=== PATIENT | male | born 1985 | race Caucasian/White ===

== ENCOUNTER 2019-06-07 10:31 | Emergency (ER) | payer MEDICAID ==
[~2019-06-07] VITALS: Ht 162.6 cm; Wt 51.3 kg
[2019-06-07 11:07] VITALS: BP 136/95
--- NOTE | 2019-06-07 11:17 | NUR ---
No open bed at this time, pt escorted out to lobby, ambulates with slow steady gait with walker.
--- NOTE | 2019-06-07 11:33 | NUR ---
TO ED 03 WITH WALKER AND CAREGIVER.
--- NOTE | 2019-06-07 11:56 | NUR ---
XRAY AT BEDSIDE
[2019-06-07 12:50] VITALS: BP 125/93
--- NOTE | 2019-06-07 12:50 | NUR ---
Patient discharged with v/s stable. Written and verbal after care instructions given and explained. Patient verbalized understanding. Ambulatory with steady gait. All questions addressed prior to discharge. Advised to follow up with PMD.
== END 2019-06-07 12:50 | disposition home or self-care (01) ==
LOC: MED 10:31
DX: R05 Cough (principal); R06.2 Wheezing; J45.909 Unspecified asthma, uncomplicated; F41.9 Anxiety disorder, unspecified
CPT/HCPCS: 71045; 99283; Q0092

== ENCOUNTER 2019-11-22 14:51 | Inpatient (IN) | payer OTHER, SELFPAY ==
[~2019-11-22] VITALS: Ht 165.1 cm; Wt 63.5 kg
--- NOTE | 2019-11-22 14:52 | NUR ---
BIBA TAKEN TO BED 9
[2019-11-22] MEDS ORDERED: NACL 0.9% 1,000 ML IV SCH (15:02)
[2019-11-22 15:05] VITALS: BP 132/84
[2019-11-22] MEDS ORDERED: FOLI1TAB89 PO (15:31)
[2019-11-22] MEDS ORDERED: NA P133E RC (15:31)
[2019-11-22] MEDS ORDERED: CARB15DR52 OT (15:31)
[2019-11-22] MEDS ORDERED: LEVO0.124 PO (15:31)
[2019-11-22] MEDS ORDERED: FENO145T PO (15:31)
[2019-11-22] MEDS ORDERED: QUET100T PO (15:31)
[2019-11-22] MEDS ORDERED: [UNRECOGNIZED DRUG - CODE] PO (15:31)
[2019-11-22] MEDS ORDERED: ACET-2619 PO (15:31)
[2019-11-22] MEDS ORDERED: QUET200T PO (15:31)
[2019-11-22] MEDS ORDERED: FERR325E14 PO (15:31)
[2019-11-22] MEDS ORDERED: ALBU0.0912 IH (15:31)
[2019-11-22] MEDS ORDERED: SIMV40TA1 PO (15:31)
[2019-11-22] MEDS ORDERED: BISA-246 RC (15:31)
[2019-11-22] MEDS ORDERED: MONT10TA35 PO (15:31)
[2019-11-22] MEDS ORDERED: CYAN100T65 PO (15:31)
--- NOTE | 2019-11-22 15:31 | NUR ---
34 Y/O M BIBA FROM [facility] C/C COVID POSITIVE PER FACILITY AND PER FACILITY UNABLE TO CARE OF COVID PATIENT, SENT TO ER FOR FURTHER EVALUATION. PT PRESENTS IN NO DISTRESS, EUPNIC, VSS. UNABLE TO OBTAIN REPORT FROM PATIENT HX MODERATE INTELLECTUAL DISABILITY AND DEAF. NKA. RX--SEE CHART.
[2019-11-22] MEDS ORDERED: IMO2 PO (15:32)
--- NOTE | 2019-11-22 15:33 | NUR ---
X-Ray at bedside.
--- NOTE | 2019-11-22 15:35 | NUR ---
HISTORY TUTOR CALLED FOR HYDRAULIC JACK ADJUSTER MACHINE.
[2019-11-22 15:37] LABS: BILIRUBIN,URINE NEGATIVE (NEGATIVE); BLOOD, URINE 1+ (NEGATIVE); LEUKOCYTE ESTERASE ,URINE NEGATIVE (NEGATIVE); NITRITE, URINE NEGATIVE (NEGATIVE); UGLUCOSE NEGATIVE (NEGATIVE)
[2019-11-22 15:37] LABS: BASOPHILS # (AUTO) 0.1 K/uL (0.00-0.22); EOSINOPHILS % (AUTO) 0.5 % (0.0-4.0); HEMATOCRIT 38.6 % (36-52); HEMOGLOBIN 12.7 g/dL (12.0-18.0); LYMPHOCYTES # (AUTO) 0.4 K/uL (2.0-11.5); LYMPHOCYTES % (AUTO) 8.4 % (20.5-51.1); MEAN CORPUSCULAR HEMOGLOBIN 27 pg (27-31); MEAN CORPUSCULAR HGB CONC 33 g/dL (33-37); MEAN CORPUSCULAR VOLUME 83.3 fL (80-94); MONOCYTES # (AUTO) 0.5 K/uL (0.8-1.0); MONOCYTES % (AUTO) 9.1 % (1.7-9.3); NEUTROPHILS # (AUTO) 4.3 K/uL (1.8-7.7); PLATELET COUNT (AUTO) 176 K/uL (140-450); RED BLOOD CELL COUNT(AUTO) 4.64 MIL/uL (4.20-6.10); RED CELL DISTRIBUTION WIDTH 13.9 % (11.6-13.7); WHITE BLOOD COUNT (AUTO) 5.3 K/uL (4.8-10.8)
--- NOTE | 2019-11-22 15:51 | NUR ---
ASL INTERPRETATION VIA [employer] UTILIZED, APPLICATION DEVELOPMENT DIRECTOR ID # [id number].
[2019-11-22 15:55] LABS: ALBUMIN 3.1 g/dL (3.4-5.0); ANION GAP 11.1 (8-16); CARBON DIOXIDE 29.3 mmol/L (21-32); CREATININE 0.8 mg/dL (0.6-1.3); POTASSIUM 3.4 mmol/L (3.5-5.1); TOTAL BILIRUBIN 0.3 mg/dL (0.0-1.0)
--- NOTE | 2019-11-22 15:56 | NUR ---
MENTATION ASSESSMENT THROUGH [employer] COMPLETED. PT A/OXO.
[2019-11-22 15:57] LABS: APPEARANCE,URINE CLEAR (CLEAR); COLOR,URINE STRAW (YELLOW)
[2019-11-22 15:58] LABS: RBC,URINE 0-5 /HPF (0-5); WBC,URINE NONE SEEN /HPF (0-5)
--- NOTE | 2019-11-22 16:30 | NUR ---
PT RESTING IN BED, SIDE RAIL X2
[2019-11-22] MEDS ORDERED: ZOLPIDEM 5 MG TAB PO PRN (17:05)
[2019-11-22] MEDS ORDERED: ACETAMINOPHEN 650 MG SUPP RC PRN (17:05)
[2019-11-22] MEDS ORDERED: HYDROcodone/APAP 5/325 MG 1 TAB TAB PO PRN ×2 (17:05)
[2019-11-22] MEDS ORDERED: LORazepam 2 MG/ML VIAL IVP PRN (17:05)
[2019-11-22] MEDS ORDERED: cloNIDine 0.1 MG TAB PO PRN (17:05)
[2019-11-22] MEDS ORDERED: diphenhydrAMINE 50 MG/ML VIAL IVP PRN (17:05)
[2019-11-22] MEDS ORDERED: SODIUM PHOSPHATE 118 ML ENEM RC PRN (17:05)
[2019-11-22] MEDS ORDERED: ALUMINUM HYD/MAG/SIMETHICONE 30 ML UDC PO PRN (17:05)
[2019-11-22] MEDS ORDERED: MAGNESIUM OXIDE 400 MG TAB PO PRN (17:05)
[2019-11-22] MEDS ORDERED: guaiFENesin DM 200/20 MG-10 ML 10 ML UDC PO PRN (17:05)
[2019-11-22] MEDS ORDERED: ACETAMINOPHEN 325 MG TAB PO PRN (17:05)
[2019-11-22] MEDS ORDERED: ONDANSETRON 4 MG/2 ML VIAL IVP PRN (17:05)
[2019-11-22] MEDS ORDERED: BISACODYL 10 MG SUPP RC PRN (17:05)
[2019-11-22] MEDS ORDERED: POTASSIUM CHLORIDE 10 MEQ TABER PO PRN (17:05)
[2019-11-22] MEDS ORDERED: MAG SULF 2000 MG/WATER PREMIX 50 ML IV PRN (17:05)
[2019-11-22] MEDS ORDERED: DOCUSATE SODIUM 250 MG GELCAP PO PRN (17:05)
[2019-11-22] MEDS ORDERED: ALBUTEROL HFA MDI 90 MCG/ACTUATION 8 GM INH PRN (17:05)
[2019-11-22] MEDS ORDERED: MORPHINE SULFATE 2 MG/ML SYR IVP PRN (17:05)
--- NOTE | 2019-11-22 17:30 | NUR ---
PT RESTING IN BED, SIDE RAIL X2
--- NOTE | 2019-11-22 18:00 | NUR ---
Patient will be admitted to care of [facility]. Admited to TELE. Will go to room 130. Belongings list completed. Report to MAYNOR NYE.
--- NOTE | 2019-11-22 18:00 | NUR ---
RECEIVED REPORT FORM ER NURSE FOR CONTINUITY OF CARE, PT IS STABLE, PT IS DEAL, MENTALLY DELAYED, PT HAS LEFT HAND 20G, PT ON CARDIAC DIET, ADMITTING VITAL SIGNS ARE TEMP:100.7, BP:137/96, HR 100, O2:100, RR20, INTRODUCE PT TO THE ROOM, GAVE PT CALL LIGHT, BED IN LOW POSITION, SAFETY MEASURES IN PLACE, WILL CONTINUE TO MONITOR.
--- NOTE | 2019-11-22 18:17 | NUR ---
ADMINISTERED TYLENOL FOR TEMPEARTURE OF 100, MEDICATION EDUCATION GIVEN, PT TOLERATED WELL, PT IS STABLE. CALL LIGHT WITHIN REACH.
--- NOTE | 2019-11-22 19:10 | NUR ---
RECEIVED PATIENT IN STABLE CONDITION FROM AM SHIFT NURSE FOR CONTINUITY OF CARE. RESPIRATIONS EVEN, UNLABORED. CONTINUES ON ROOM AIR, O2SAT 98%. AFEBRILE. NO C/O PAIN. NO S/S ACUTE DISTRESS. SKIN WARM, DRY. SKIN ASSESSMENT COMPLETED. SKIN IS INTACT. SALINE LOCK TO RIGHT HAND 20G PATENT/INTACT. SAFETY PRECAUTIONS IN PLACE. ISOLATION PRECAUTIONS OBSERVED BY ALL STAFF. ORIENTED PATIENT TO ROOM/STAFF/CALL LIGHT. MRSA SCREEN COMPLETED BY PREVIOUS SHIFT. CALL LIGHT WITHIN REACH. WILL CONTINUE TO MONITOR.
--- NOTE | 2019-11-22 19:10 | NUR ---
GAVE REPORT TO NIGHT NURSE FOR CONTINUITY OF CARE, PT IS STABLE.
[2019-11-22 20:00] VITALS: BP 153/110
[2019-11-22] MEDS: QUEtiapine FUMARATE 100 MG TAB PO SCH (20:46)
[2019-11-22] MEDS: FENOFIBRATE 48 MG TAB PO SCH (20:47)
[2019-11-22] MEDS: SIMVASTATIN 40 MG TAB PO SCH (20:47)
[2019-11-22] MEDS ORDERED: hydrALAZINE 20 MG/ML VIAL IVP PRN (20:55)
[2019-11-22] MEDS ORDERED: hydrALAZINE 20 MG/ML VIAL ONE (21:00)
[2019-11-22] MEDS ORDERED: NON-FORMULARY ITEM (Fenofibrate Nanocrystallized* (Tricor*) 145 MG) PO SCH (21:00)
--- NOTE | 2019-11-22 21:17 | NUR ---
ELEVATED BLOOD PRESSURE OF 153/110 MM/HG. PRN HYDRALAZINE GIVEN ORDERED.
--- NOTE | 2019-11-22 22:00 | NUR ---
BLOOD PRESSURE REASSESSED AND CURRENTLY 122/77. PATIENT IS COMFORTABLY AND TRYING TO GO TO SLEEP. NO C/O PAIN. NO S/S ACUTE DISTRESS. DUE MEDS GIVEN ORDERED. ISOLATION PRECAUTIONS OBSERVED BY ALL STAFF. SAFETY PRECAUTIONS IN PLACE. CALL LIGHT WITHIN REACH AT ALL TIMES.
--- NOTE | 2019-11-22 23:18 | NUR ---
INCONTINENT CARE RENDERED WITH COOK TORTILLA AT BEDSIDE.
[2019-11-23] VITALS: BP 93/55
--- NOTE | 2019-11-23 01:37 | NUR ---
MADE ROUNDS. PATIENT IS ASLEEP. NO S/S ACUTE DISTRESS. ISOLATION PRECAUTIONS OBSERVED BY ALL STAFF. SAFETY PRECAUTIONS IN PLACE. CALL LIGHT WITHIN REACH AT ALL TIMES.
--- NOTE | 2019-11-23 03:50 | NUR ---
PATIENT IS ASLEEP. NO S/S ACUTE DISTRESS. CALL LIGHT WITHIN REACH. ISOLATION PRECAUTIONS OBSERVED. SAFETY PRECAUTIONS IN PLACE.
[2019-11-23 04:00] VITALS: BP 127/97
--- NOTE | 2019-11-23 04:15 | NUR ---
PATIENT ACCIDENTLY REMOVED IV. CANNULA INTACT. MINIMAL BLEEDING. NEW IV SITE STARTED USING ASEPTIC TECHNIQUE ON RIGHT HAND 20G, PATENT/INTACT. NO DISCOMFORT NOTED BY PATIENT.
--- NOTE | 2019-11-23 05:21 | NUR ---
PATIENT AWAKE AND RESTING COMFORTABLY IN BED. NO C/O PAIN. NO S/S ACUTE DISTRESS. CALL LIGHT WITHIN REACH. SAFETY PRECAUTIONS IN PLACE. ISOLATION PRECAUTIONS OBSERVED BY ALL STAFF.
[2019-11-23 06:32] LABS: BASOPHILS % (AUTO) 0.5 % (0.0-2.0); HEMATOCRIT 41.6 % (36-52); HEMOGLOBIN 13.7 g/dL (12.0-18.0); LYMPHOCYTES # (AUTO) 0.6 K/uL (2.0-11.5); LYMPHOCYTES % (AUTO) 12.1 % (20.5-51.1); MEAN CORPUSCULAR HEMOGLOBIN 28 pg (27-31); MEAN CORPUSCULAR HGB CONC 33 g/dL (33-37); MEAN CORPUSCULAR VOLUME 84.3 fL (80-94); MONOCYTES # (AUTO) 0.3 K/uL (0.8-1.0); MONOCYTES % (AUTO) 6.2 % (1.7-9.3); NEUTROPHILS # (AUTO) 4.2 K/uL (1.8-7.7); NEUTROPHILS % (AUTO) 81.2 % (42.2-75.2); PLATELET COUNT (AUTO) 179 K/uL (140-450); RED BLOOD CELL COUNT(AUTO) 4.94 MIL/uL (4.20-6.10); RED CELL DISTRIBUTION WIDTH 14.5 % (11.6-13.7); WHITE BLOOD COUNT (AUTO) 5.2 K/uL (4.8-10.8)
[2019-11-23] MEDS ORDERED: LEVOTHYROXINE 0.025 MG TAB ONE (06:34)
[2019-11-23] MEDS ORDERED: LEVOTHYROXINE 0.1 MG TAB ONE (06:34)
[2019-11-23] MEDS: LEVOTHYROXINE 0.1 MG, LEVOTHYROXINE 0.025 MG PO SCH ×2 (06:43)
[2019-11-23 07:04] LABS: ALBUMIN 3.3 g/dL (3.4-5.0); CARBON DIOXIDE 29.2 mmol/L (21-32); CREATININE 0.9 mg/dL (0.6-1.3); POTASSIUM 4.2 mmol/L (3.5-5.1); TOTAL BILIRUBIN 0.4 mg/dL (0.0-1.0)
--- NOTE | 2019-11-23 07:05 | NUR ---
RECEIVED PATIENT IN STABLE CONDITION FROM PM SHIFT NURSE FOR CONTINUITY OF CARE. RESPIRATIONS EVEN, UNLABORED. CONTINUES ON ROOM AIR, O2SAT 98%. NO C/O PAIN. NO S/S ACUTE DISTRESS. SKIN WARM, DRY. SKIN ASSESSMENT COMPLETED. SKIN IS INTACT. SALINE LOCK TO RIGHT HAND 20G PATENT/INTACT. SAFETY PRECAUTIONS IN PLACE. DROPLET ISOLATION PRECAUTIONS OBSERVED BY ALL STAFF. ORIENTED PATIENT TO ROOM/STAFF/CALL LIGHT. CALL LIGHT WITHIN REACH. WILL CONTINUE TO MONITOR.
[2019-11-23] MEDS ORDERED: LEVOTHYROXINE 0.025 MG TAB PO SCH (07:30)
[2019-11-23 08:00] VITALS: BP 140/95
[2019-11-23] MEDS ORDERED: NON-FORMULARY ITEM (Levothyroxine Sodium* (Synthroid*) 0.125 MG) PO SCH (09:00)
[2019-11-23] MEDS ORDERED: CHOLECALCIFEROL 5000 UNIT PO SCH (09:00)
[2019-11-23] MEDS: MONTELUKAST SODIUM 10 MG TAB PO SCH (09:05)
[2019-11-23] MEDS: QUEtiapine FUMARATE 100 MG TAB PO SCH ×2 (09:05→20:35)
[2019-11-23] MEDS: FOLIC ACID 1 MG TAB PO SCH (09:05)
[2019-11-23] MEDS: CHOLECALCIFEROL 1,000 IU TAB PO SCH (09:05)
[2019-11-23] MEDS: FERROUS SULFATE 325 MG TABEC PO SCH (09:05)
--- NOTE | 2019-11-23 09:05 | NUR ---
Ordered medications given. Patient being assisted with breakfast. Patient has no complaints at this time. Will continue to monitor patient.
[2019-11-23] MEDS: ENOXAPARIN 40 MG/0.4 ML SYR SUBQ SCH (09:19)
--- NOTE | 2019-11-23 10:15 | NUR ---
Patient resting in bed with eyes closed, respirations even and unlabored. Will continue to monitor patient.
--- NOTE | 2019-11-23 11:22 | NUR ---
Patient's brother, Tre, called. Updated him on patient's VS and condition. Patient resting calmly at this time. Will continue to monitor patient.
[2019-11-23 12:00] VITALS: BP 140/87
--- NOTE | 2019-11-23 14:05 | NUR ---
Patient sitting up in bed being fed lunch. No complaints at this time. FLACC-0. Respirations even and unlabored on room air, O2 saturation 97%, will continue to monitor patient.
[2019-11-23 15:25] VITALS: BP 119/67
--- NOTE | 2019-11-23 15:30 | NUR ---
Patient resting in bed comfortably, no complaints at this time. Safety and droplet precautions in place, call light within reach, will continue to monitor patient.
--- NOTE | 2019-11-23 18:50 | NUR ---
Patient's brother, Yaakov, called. . Updated him on patient's status and condition.
--- NOTE | 2019-11-23 19:08 | NUR ---
RECEIVED PATIENT IN STABLE CONDITION FROM AM SHIFT NURSE FOR CONTINUITY OF CARE. TELE PATIENT. RESPIRATIONS EVEN, UNLABORED. SKIN WARM, DRY. SALINE LOCK TO RIGHT HAND 20G PATENT/INTACT. NO C/O PAIN. NO S/S ACUTE DISTRESS. CALL LIGHT WITHIN REACH. SAFETY PRECAUTIONS IN PLACE. ISOLATION PRECAUTIONS OBSERVED BY ALL STAFF.
[2019-11-23 20:00] VITALS: BP 140/85
--- NOTE | 2019-11-23 20:17 | NUR ---
POSITIVE COVID SWAB RECEIVED -- REPORT GIVEN TO INFECTION CONTROL AND RESULT CALLED TO PARRIS ALARCON WHO WILL FOLLOW UP WITH ADMITTING PHYSICIAN.
[2019-11-23] MEDS: FENOFIBRATE 48 MG TAB PO SCH (20:35)
[2019-11-23] MEDS: SIMVASTATIN 40 MG TAB PO SCH (20:36)
--- NOTE | 2019-11-23 21:00 | NUR ---
PATIENT AWAKE AND SITTING COMFORTABLY IN BED. DUE MEDS GIVEN. NO C/O PAIN. NO S/S ACUTE DISTRESS. CALL LIGHT WITHIN REACH AT ALL TIMES. ISOLATION PRECAUTIONS OBSERVED. SAFETY PRECAUTIONS IN PLACE.
--- NOTE | 2019-11-23 23:25 | NUR ---
MADE ROUNDS. PATIENT IS ASLEEP. NO S/S ACUTE DISTRESS. CALL LIGHT WITHIN REACH. SAFETY PRECAUTIONS IN PLACE. ISOLATION PRECAUTIONS OBSERVED BY ALL STAFF.
[2019-11-24] VITALS: BP 119/76
--- NOTE | 2019-11-24 01:42 | NUR ---
PATIENT IS ASLEEP AND IN STABLE CONDITION. NO S/S ACUTE DISTRESS. CALL LIGHT WITHIN REACH. SAFETY PRECAUTIONS IN PLACE. ISOLATION PRECAUTIONS OBSERVED BY ALL STAFF.
--- NOTE | 2019-11-24 03:03 | NUR ---
PATIENT CONTINUES IN STABLE CONDITION. ASLEEP. NO S/S ACUTE DISTRESS. CALL LIGHT WITHIN REACH AT ALL TIMES. SAFETY PRECAUTIONS IN PLACE. ISOLATION PRECAUTIONS OBSERVED BY ALL STAFF.
[2019-11-24 04:00] VITALS: BP 93/57
--- NOTE | 2019-11-24 05:00 | NUR ---
PATIENT AWAKE. CONTINUES IN STABLE CONDITION. NO S/S ACUTE DISTRESS. SAFETY PRECAUTIONS IN PLACE. ISOLATION PRECAUTIONS OBSERVED BY ALL STAFF. CALL LIGHT WITHIN REACH AT ALL TIMES.
[2019-11-24] MEDS ORDERED: LEVOTHYROXINE 0.025 MG TAB ONE (06:30)
[2019-11-24] MEDS ORDERED: LEVOTHYROXINE 0.1 MG TAB ONE (06:30)
[2019-11-24] MEDS: LEVOTHYROXINE 0.1 MG, LEVOTHYROXINE 0.025 MG PO SCH ×2 (06:32)
--- NOTE | 2019-11-24 07:49 | NUR ---
RECEIVED REPORT FROM OPTICAL COATING TECHNICIAN NURSE FOR CONTINUITY OF CARE. AOX1 RESPONDS TO HIS NAME. FLACC 0, NO SOB, RESPIRATIONS EVEN AND UNLABORED. BLIND AND DEAF ON ROOM AIR, SATURATING WELL. SALINE LOCK TO RH 20G. CALL LIGHT WITHIN REACH. ISOLATION PRECAUTION OBSERVED. WILL CONT TO MONITOR
[2019-11-24 08:00] VITALS: BP 101/64
--- NOTE | 2019-11-24 08:40 | NUR ---
PATIENT HAS BEEN SCREENED AND CATEGORIZED MODERATE NUTRITION RISK. PATIENT WILL BE SEEN WITHIN 3-5 DAYS OF ADMISSION. 11/25/19 11/27/[address]
[2019-11-24] MEDS: CHOLECALCIFEROL 1,000 IU TAB PO SCH (09:00)
[2019-11-24] MEDS: QUEtiapine FUMARATE 100 MG TAB PO SCH ×2 (09:00→20:48)
[2019-11-24] MEDS: FOLIC ACID 1 MG TAB PO SCH (09:00)
[2019-11-24] MEDS: ENOXAPARIN 40 MG/0.4 ML SYR SUBQ SCH (09:00)
[2019-11-24] MEDS: MONTELUKAST SODIUM 10 MG TAB PO SCH (09:00)
[2019-11-24] MEDS: FERROUS SULFATE 325 MG TABEC PO SCH (09:00)
--- NOTE | 2019-11-24 09:30 | NUR ---
DUE MORNING MEDS GIVEN ORDERED. TOLERATED WELL.
--- NOTE | 2019-11-24 11:45 | NUR ---
PPT IS AWAKE, ALERT AND WATCHING TV. NO APPARENT DISTRESS, NO SOB, FLACC 0
[2019-11-24 12:00] VITALS: BP 112/72
--- NOTE | 2019-11-24 14:40 | NUR ---
PT WATCHING TV. FLACC 0, RESPIRATIONS ARE EVEN AND UNLABORED
[2019-11-24 16:00] VITALS: BP 109/73
--- NOTE | 2019-11-24 17:00 | NUR ---
PT PULLED OUT IV ON RIGHT HAND. LUMEN INTACT. IV INSERTED IN LEFT FOREARM.
--- NOTE | 2019-11-24 19:05 | NUR ---
PT AWAKE IN BED. FLACC 0 RESPIRATIONS ARE EVEN AND UNLABORED. ON ROOM AIR. NO APPARENT DISTRESS. WILL ENDORSE TO NEXT SHIFT
--- NOTE | 2019-11-24 19:48 | NUR ---
RECEIVED BEDSIDE SHIFT REPORT FROM DAYSHIFT NURSE FOR CONTINUITY OF CARE. PATIENT AWAKE AND ALERT IN BED NO SIGNS OF DISTRESS NOTED. SPO2 99% ON RA. IV ASSESSED AND PATENT. (SALINE LOCKED), TELE MONITOR ATTACHED AND SAFETY MEASURES IN PLACE. WILL CONTINUE TO MONITOR
[2019-11-24 20:00] VITALS: BP 118/81
[2019-11-24] MEDS: FENOFIBRATE 48 MG TAB PO SCH (20:47)
[2019-11-24] MEDS: SIMVASTATIN 40 MG TAB PO SCH (20:48)
--- NOTE | 2019-11-24 20:48 | NUR ---
ADMINISTERED 2100 MEDICATIONS TO PATIENT. PATIENT TOLERATED WELL NO SIGNS OF DISTRESS NOTED. WILL CONTINUE TO MONITOR.
--- NOTE | 2019-11-24 20:55 | NUR ---
PT SEEN AND ASSESSED. FOUND PT ON ROOM AIR WITH SPO2 OF 97%. PT IS IN NO APPARENT RESPIRATORY DISTRESS AT THIS TIME AND NO C/O SOB. PRN TX NOT INDICATED AT THIS MOMENT. WILL CONTINUE TO MONITOR PT.
--- NOTE | 2019-11-24 23:50 | NUR ---
PATIENT IN ROOM. SPO2 DECREASED TO 80% PATIENT BED IMMEDIATELY ELEVATED AND PLACED ON 2L O2 VIA NC. PATIENTS SPO2 IMMEDIATELY INCREASED TO 97%. RT CALLED FOR REASSESSEMENT. PATIENT IS RESTING COMFORTABLY IN BED NO SIGNS OF DISTRESS NOTED. WILL CONTINUE TO MONITOR
[2019-11-25] VITALS: BP 104/76
--- NOTE | 2019-11-25 01:06 | NUR ---
ROUNDING PATIENT RESTING IN BED. O2 OUT OF NOSE. SPO2 AT 94%. ASSISTED PATIENT WITH PLACING NC BACK ON. WILL CONTINUE TO CLOSELY MONITOR
--- NOTE | 2019-11-25 02:15 | NUR ---
ROUNDING. PATIENT RESTING COMFORTABLY IN BED NO SIGNS OF DISTRESS NOTED WILL CONTINUE TO MONITOR
[2019-11-25 04:00] VITALS: BP 104/73
--- NOTE | 2019-11-25 04:30 | NUR ---
ROUNDING, ASSISTED CAREER BASED INTERVENTION COORDINATOR WITH BED CHANGE AND AM CARE. PATIENT TOLERATED WELL NO SIGNS OF DISTRESS NOTED. ALL MONITORS ATTACHED AND CALL LIGHT WITHIN REACH
--- NOTE | 2019-11-25 06:30 | NUR ---
ADMINISTERED 0730 MEDICATION TO PATIENT. PATIENT TOLERATED WELL
[2019-11-25] MEDS ORDERED: LEVOTHYROXINE 0.1 MG TAB ONE (06:48)
[2019-11-25] MEDS ORDERED: LEVOTHYROXINE 0.025 MG TAB ONE (06:48)
[2019-11-25] MEDS: LEVOTHYROXINE 0.1 MG, LEVOTHYROXINE 0.025 MG PO SCH ×2 (06:51)
--- NOTE | 2019-11-25 07:25 | NUR ---
ENDORSED PATIENT TO DAYSHIFT NURSE FOR CONTINUITY OF CARE. PATIENT IN STABLE CONDITION.
--- NOTE | 2019-11-25 07:48 | NUR ---
RECEIVED REPORT FROM DIRECTOR OF STRATEGY & MOBILE NURSE FOR CONTINUITY OF CARE. AOX1 RESPONDS TO HIS NAME. FLACC 0, NO SOB, RESPIRATIONS EVEN AND UNLABORED. BLIND AND DEAF ON ROOM AIR, SATURATING WELL. SALINE LOCK TO LFA 22G. CALL LIGHT WITHIN REACH. ISOLATION PRECAUTION OBSERVED. WILL CONT TO MONITOR
[2019-11-25 08:00] VITALS: BP 108/68
--- NOTE | 2019-11-25 08:45 | NUR ---
DUE MORNING MEDS GIVEN. TOLERATED WELL.
[2019-11-25] MEDS: MONTELUKAST SODIUM 10 MG TAB PO SCH (09:00)
[2019-11-25] MEDS: FERROUS SULFATE 325 MG TABEC PO SCH (09:00)
[2019-11-25] MEDS: QUEtiapine FUMARATE 100 MG TAB PO SCH ×2 (09:00→21:22)
[2019-11-25] MEDS: FOLIC ACID 1 MG TAB PO SCH (09:00)
[2019-11-25] MEDS: CHOLECALCIFEROL 1,000 IU TAB PO SCH (09:00)
[2019-11-25] MEDS: ENOXAPARIN 40 MG/0.4 ML SYR SUBQ SCH (09:00)
--- NOTE | 2019-11-25 11:14 | NUR ---
PT IN AWAKE AND RESPONSIVE. FLACC 0, NO SOB, RESPIRATIONS ARE EVEN AND UNLABORED
[2019-11-25 12:00] VITALS: BP 112/69
--- NOTE | 2019-11-25 12:15 | NUR ---
WITH EPISODES OF PULLING OUT TELE MONITOR AND DISROBING. PROMPTLY REATTACHED TELE MONITOR AND CHANGED PT
--- NOTE | 2019-11-25 13:30 | NUR ---
PT IN BED EATING LUNCH. NO APPARENT DISTRESS. FLACC 0, NO SOB
--- NOTE | 2019-11-25 15:15 | NUR ---
PT IN BED WATCHING TV. FLACC 0, NO SOB, O2SAT 99% ON ROOM AIR
[2019-11-25 16:00] VITALS: BP 115/79
--- NOTE | 2019-11-25 18:00 | NUR ---
PT PULLED OUT IV ON LEFT FOREARM. LUMEN INTACT. IV INSERTED IN LEFT AC 22G.
--- NOTE | 2019-11-25 18:55 | NUR ---
PT AWAKE IN BED. FLACC 0, RESPIRATIONS ARE EVEN AND UNLABORED. WILL ENDORSE TO NEXT SHIFT FOR CONTINUITY OF CARE
--- NOTE | 2019-11-25 19:25 | NUR ---
RECEIVED ENDORSEMENT FROM AM SHIFT RN. PATIENT IS IN BED, SEMI FOWLERS POSITION. RESPIRATION EVEN AND UNLABORED. NO SOB. AOX1 TO NAME. PATIENT IS NON-VERBAL, HX OF HEARING AND VISION IMPAIRED. FLACC-0. HAS LAC 22G SALINE LOCK. INTACT. TELE MONITOR ATTACHED. ASSESSMENT DONE. FALL RISK PROTOCOL IN PLACE. DROPLET PRECAUTION ISOLATION OBSERVED AT ALL TIMES. PLAN OF CARE WAS DISCUSSED, CALL LIGHT WITHIN REACH. WILL CONTINUE TO MONITOR.
[2019-11-25 20:00] VITALS: BP 141/89
--- NOTE | 2019-11-25 20:56 | NUR ---
PT IN NO SIGNS OF DISTRESS SPO2 96 ON RA
[2019-11-25] MEDS: SIMVASTATIN 40 MG TAB PO SCH (21:21)
[2019-11-25] MEDS: FENOFIBRATE 48 MG TAB PO SCH (21:22)
--- NOTE | 2019-11-25 21:22 | NUR ---
DUE MEDS GIVEN ORDERED. TOLERATED WELL. KEPT CLEAN, DRY AND COMFORTABLE. PATIENT IS COOPERATIVE. NO PAIN NOTED. CALL LIGHT WITHIN REACH. WILL CONTINUE TO MONITOR.
--- NOTE | 2019-11-25 23:39 | NUR ---
PATIENT IS SLEEPING AT THIS TIME. RESPIRATION EVEN AND UNLABORED. NO SOB.
[2019-11-26] VITALS (7 sets, daily range): BP systolic 104–118; BP diastolic 59–92
--- NOTE | 2019-11-26 01:38 | NUR ---
CHECKED PATIENT. ASLEEP. NO SOB. KEPT COMFORTABLE.
--- NOTE | 2019-11-26 02:21 | NUR ---
ROUNDING PATIENT RESTING. EASILY AWAKENED. NO SIGNS OF DISTRESS NOTED. ALL MONITORS ATTACHED AND SAFETY MEASURES IN PLACE. WILL CONTINUE TO MONITOR
--- NOTE | 2019-11-26 04:00 | NUR ---
PATIENT IS ASLEEP. AROUSABLE TO VERBAL. V/S CHECKED. PATIENT CARE DONE. KEPT CLEAN AND DRY.
[2019-11-26] MEDS ORDERED: LEVOTHYROXINE 0.025 MG TAB ONE (06:30)
[2019-11-26] MEDS ORDERED: LEVOTHYROXINE 0.1 MG TAB ONE (06:30)
[2019-11-26] MEDS: LEVOTHYROXINE 0.1 MG, LEVOTHYROXINE 0.025 MG PO SCH ×2 (06:31)
--- NOTE | 2019-11-26 06:57 | NUR ---
SYNTHROID PO GIVEN ORDERED. TOLERATED WELL. PATIENT IS IN STABLE CONDITION. WILL ENDORSE TO AM SHIFT RN FOR CONTINUITY OF CARE.
--- NOTE | 2019-11-26 07:25 | NUR ---
RECEIVED PT FROM ACCOUNT INFORMATION CLERK NURSE. PT IS CURRENTLY LAYING IN BED, SLEEPING WITH NO SIGNS OF DISTRESS OR COMPLAINTS OF PAIN. RESPIRATIONS ARE EVEN AND UNLABORED ON ROOM AIR. SKIN IS INTACT, WITH IV ASYMPTOMATIC, PATENT, AND INFUSING PER ORDER. SAFETY MEASURES IN PLACE, BED IS IN LOW, SEMI-FOWLERS POSITION, WILL CONTINUE TO MONITOR PLAN OF CARE.
--- NOTE | 2019-11-26 07:35 | NUR ---
RECEIVED BEDSIDE SHIFT REPORT FROM [facility] NURSE FOR CONTINUITY OF CARE. RESPIRATIONS EVEN AND UNLABORED ON RA. SPO2 AT 97%. TELE MONITOR ATTACHED. IV ASSESSED AND PATENT. FELIX BELTRÁN TO MONITOR Addendum: 11/27/19 at 0808 by Raquel Garsia RN WRONG NOTE ENTERED
[2019-11-26] MEDS: CHOLECALCIFEROL 1,000 IU TAB PO SCH (09:39)
[2019-11-26] MEDS: MONTELUKAST SODIUM 10 MG TAB PO SCH (09:40)
[2019-11-26] MEDS: QUEtiapine FUMARATE 100 MG TAB PO SCH ×2 (09:40→21:50)
[2019-11-26] MEDS: FOLIC ACID 1 MG TAB PO SCH (09:41)
[2019-11-26] MEDS: FERROUS SULFATE 325 MG TABEC PO SCH (09:41)
--- NOTE | 2019-11-26 09:45 | NUR ---
ADMINISTERED MEDICATIONS PE ORDER AND TOLERATED WELL. PTS BROTHER CALLED TO CHECK STATUS UPDATE, AND HAD NO FURTHER QUESTIONS AT THIS TIME. PT IS CURRENTLY EATING BREAKFAST AT BEDSIDE WITH NO COMPLAINS OF PAIN AT THIS TIME. SAFETY MEASURES IN PLACE AND WILL CONTINUE TO MONITOR.
[2019-11-26] MEDS: ENOXAPARIN 40 MG/0.4 ML SYR SUBQ SCH (09:55)
--- NOTE | 2019-11-26 10:30 | NUR ---
PT VOIDED AND HAS BEEN CHANGED. PT DOES NOT COMPLAIN OF ANY SIGNS OF DISTRESS OR COMPLAINTS OF PAIN. SAFETY MEASURES IN PLACE AND WILL CONTINUE OT MONITOR.
--- NOTE | 2019-11-26 12:09 | NUR ---
DISCHARGE PLANNING: THIS IS A 34 Y/O MALE PATIENT FROM A [facility], WHO WAS BROUGHT IN DUE TO MENTAL DELAY, ASTHMA, HYPOTHYROIDISM, HYPERLIPIDEMIA, ANEMIA, VISUAL PROBLEM AND DEAFNESS. INITIAL DIAGNOSIS OF COVID 19. ALB 3.3. ID CONSULT IN PLACE. ON SEROQUEL. DC PLAN BACK TO HOME ([facility]ARD AND [facility]) ONCE STABLE. Addendum: 11/26/19 at 1218 by Penelope John CM CONTACTED THE [facility] AT [phone] TO INQUIRE IF THEY ARE ABLE TO ACCEPT COVID POSITIVE PATIENTS BACK, NO ANSWER. LEFT MESSAGE. WILL FOLLOW UP. Addendum: 11/26/19 at 1235 by Penelope John CM RECEIVED A CALL BACK FROM [facility]IA MORALES PROCESS MAINTENANCE TECHNICIAN OF [facility], SHE STATED THEY ARE ABLE TO TAKE COVID POSITIVE PATIENT'S BACK. AND THEY CAN ALSO PROVIDE TRANSPORTATION BEFORE 1700. Addendum: 11/26/19 at 1342 by Alfreda Acevedo SPOKE WITH [facility] [phone], SHE IS SAYING THAT THE PATIENT CAN NOT GO BACK UNTIL TOMORROW AROUND 2:00 P.M. I ASKED HER IF WE ARE ABLE TO PROVIDED TRANSPORTATION CAN THE PATIENT GO BACK EARLIER SHE SAID YES. Addendum: 11/26/19 at 1403 by Penelope John CONTACTED [facility] AGAIN TO CLARIFY HER STATING NOT ABLE TO ACCEPT PATIENT AT THIS TIME. SHE STATED YES AND WHEN ASKED WHY., SHE ANSWERED BECAUSE THEY DO NOT HAVE ANY TRANSPORTATION TODAY. I INFORMED HER IF WE ARE ABLE TO PROVIDE TRANSPORT, ARE THEY ABLE TO TAKE THE PATIENT BACK TODAY. SHE STATED YES. Addendum: 11/26/19 at 1423 by Alfreda Acevedo CM FAXED TRANSPORTATION REQUEST TO [facility] TRANSPORTATION REQUEST FOR PATIENT Addendum: 11/26/19 at 1440 by Alfreda Acevedo CM SPOKE WITH VICENTE AT [facility] TRANSPORTATION [phone] THE REQUEST IS STILL PENDING. SHE WILL CONTACT ME BACK ONCE TRANSPORTATION IS APPROVED. Addendum: 11/26/19 at 1644 by Penelope John CM RECEIVED A CALL FROM ANAIS DEMAND MANAGER FROM [facility] STATING THAT THEY ARE NOT READY TO TAKE THE PATIENT BACK. INFORMED HER THAT I SPOKE TO [facility] EARLIER AND WAS IN AGREEMENT. SHE SAID SHE DID NOT AUTHORIZE THAT. I TRANSFERRED HER TO [facility]ANESSA HOANG [employer] [phone]. Addendum: 11/26/19 at 1649 by Alfreda Acevedo CM PATIENT WILL NO LONGER BE DISCHARGED TODAY PER VANESSA JOSEPH SPOKE TO THE ROTARY SOIL STABILIZER AT [facility] THEY ARE NOT READY FOR THE PATIENT UNTIL TOMORROW AT 10:00 AM. Addendum: 11/26/19 at 1655 by Vanessa Simpson CM Spoke to [facility]'s wage and salary administrator, Anais Peck, who stated they're still getting ready to accept the patient as she's having staffing issues. Marine Service Operator stated she can accept the patient tomorrow, Monday, morning. Transportation has been arranged and pt will be DC at 10am. Case Management Department will remain available as needed. Vanessa Simpson, [facility] Ext [phone] Addendum: 11/27/19 at 0857 by Alfreda Acevedo CM SPOKE WITH VICENTE AT [facility] TRANSPORTATION CONFIRMED THAT PATIENT WILL BE PICKED UP TODAY AT 10:00 AM WITH [facility]. [facility] TELEPHONE NUMBER [phone] Addendum: 11/27/19 at 0858 by Alfreda Acevedo CM NOTIFIED PARRIS LU AT [facility]. Addendum: 11/27/19 at 1341 by Alfreda Acevedo CM RECEIVED WORD FROM THE RN THAT THE PATIENT HAS NOT BEEN PICKED UP YET. I REACHED OUT TO [facility] TO GET AN UPDATE ON TRANSPORTATION GOT HUNG UP ON AND HAD TO CALL BACK. GOT THROUGH TO REP ROJAS, HE WAS ABLE TO HELP AND PROVIDE A BOOT TURNER TIME OF 2:00 P.M. WITH TRANSPORTATION SERVICE [facility]. HE SAID THAT THEY WERE HAVING TROUBLE FINDING TRANSPORT SERVICE FOR COVID POSITIVE PATIENT. Addendum: 11/27/19 at 1421 by Penelope John DANIEL MALIK [facility], PATIENT WILL BE NEEDING POST DISCHARGE FOLLOW UP WITH [facility]. PRIMARY PARRIS LOCKWOOD MADE AWARE. ORDER FAXED TO IE. CONTACTED [facility] AT [phone], ABLE TO SPEAK TO MARICEL. SHE PROVIDED ME WITH DECEMBER 09, 2019 AT 1015 AM THROUGH TELE MEDICINE. SHE STATED THIS APPOINTMENT IS WITH DR. BURRELL, SINCE DR. DURAN IS FULLY BOOKED UNTIL OF DECEMBER. INFORMED HER THAT THE PATIENT IS COVID POSITIVE, PER MARICEL IT WILL BE TELE MEDICINE ANYWAYS. ALYSIA PROCESS MAINTENANCE TECHNICIAN AT [facility] MADE AWARE, SHE STATED TO CALL DANDY NYE AT [phone]. CONTACTED THE PROVIDED NUMBER, ABLE TO SPEAK TO DANDY. PROVIDED HER OF THE APPOINTMENT DATE AND TIME, DR'S NAME AND THE PHONE NUMBER TO THE CLINIC. I ALSO INFORMED HER THAT IF THEY WILL HAVE PROBLEMS SETTING UP TELE MEDICINE FOR THE PATIENT TO CALL THE DOCTOR'S OFFICE AND THEY WILL FIND A WAY TO HOW TO DO IT. DANDY VERBALIZED UNDERSTANDING BY SAYING "OK, THANK YOU SO MUCH FOR LETTING ME KNOW."
--- NOTE | 2019-11-26 12:16 | NUR ---
LUNCH HAS BEEN PLACE AT BEDSIDE AND PT IS CURRENTLY SLEEPING BUT WOKE UP TO EAT. PT IS IN NO SIGNS OF DISTRESS AND DOES NOT COMPLAIN OF ANY PAIN. SAFETY MEASURES IN PLACE AND WILL CONTINUE TO MONITOR.
--- NOTE | 2019-11-26 13:00 | NUR ---
Spoke to Dr Garcia on the phone and notified that [facility] facility will accept patient back. Discharge order received. Per , cont all home meds. Primary RN notified, and will give report to [facility]. [facility] to arrange transport.
--- NOTE | 2019-11-26 13:20 | NUR ---
PT WAS SHOUTING IN ROOM. PT WANTED TO BE CHANGED BEFORE HE FINISHED EATING LUNCH. SAFETY MEASURES IN PLACE AND WILL CONTINUE TO MONITOR.
--- NOTE | 2019-11-26 13:30 | NUR ---
Left voicemail to [facility] re: discharge plan. Awaiting call back for transport arrangements.
--- NOTE | 2019-11-26 15:50 | NUR ---
SPOKE TO DANDY AT [facility] AND [facility] AND GAVE REPORT. PT WILL BE PICKED UP AT 5PM VIA TRANSPORTATION SERVICES. SAFETY MEASURES IN PLACE AND WILL CONTINUE TO MONITOR.
--- NOTE | 2019-11-26 16:40 | NUR ---
CASE MANAGEMENT CALLED TO INFORM THAT PATIENT WILL NOT BE PICKED UP UNTIL 10 AM TOMORROW MORNING. TRANSPORTATION HAS BEEN CANCELLED. PT IS CURRENTLY SITTING IN BED WITH NO SIGNS OF DISTRESS. SAFETY MEASURES IN PLACE AND WILL CONTINUE TO MONITOR.
--- NOTE | 2019-11-26 17:00 | NUR ---
PT IS CURRENTLY EATING DINNER AT BEDSIDE WITH NO SIGNS OF DISTRESS OR COMPLAINTS OF PAIN. SAFETY MEASURES IN PLACE AND WILL CONTINUE TO MONITOR.
--- NOTE | 2019-11-26 18:51 | NUR ---
PT CURRENTLY FINISHED EATING DINNER AND IS SITTING IN BED ALERT WITH SIGNS OF DISTRESS OR PAIN VIA FLACC-0. SAFETY MEASURES IN PLACE AND WILL ENDORSE TO LACEMAKER NURSE FOR CONTINUITY OF CARE.
--- NOTE | 2019-11-26 19:35 | NUR ---
RECEIVED BEDSIDE SHIFT REPORT FROM DAYSHIFT NURSE FOR CONTINUITY OF CARE. PATIENT AWAKE AND ALERT NO SIGNS OF DISTRESS NOTED SPO2 97% ON RA. TELE MONITOR ATTACHED. SAFETY MEASURES IN PLACE. WILL CONTINUE TO MONITOR
[2019-11-26] MEDS: SIMVASTATIN 40 MG TAB PO SCH (21:50)
[2019-11-26] MEDS: FENOFIBRATE 48 MG TAB PO SCH (21:50)
--- NOTE | 2019-11-26 21:50 | NUR ---
ADMINISTERED 2100 MEDICATIONS TO PATIENT. PATIENT TOLERATED WELL NO SIGNS OF DISTRESS NOTED. WILL CONTINUE TO MONITOR
--- NOTE | 2019-11-26 22:41 | NUR ---
PT SEEN AND ASSESSED. FOUND PT ON ROOM AIR WITH SPO2 OF 97%. CLEAR BREATH SOUNDS ON AUSCULTATION. PT IS IN NO APPARENT RESPIRATORY DISTRESS AT THIS TIME. PRN TX NOT INDICATED AT THIS MOMENT. WILL CONTINUE TO MONITOR PT.
[2019-11-27] VITALS: BP 97/65
--- NOTE | 2019-11-27 00:14 | NUR ---
ROUNDING PATIENT RESTING. CORDWOOD CUTTER OBTAINED LOW BUT NORMAL TEMP. ASSESSED PATIENT AND APPLIED A WARM BLANKET BECAUSE HANDS AND FEET FELT COLD. WILL CONTINUE TO MONITOR
[2019-11-27 04:00] VITALS: BP 107/82
--- NOTE | 2019-11-27 04:02 | NUR ---
ROUNDING, OBTAINED AM VITALS AND ASSISTED HATCHERY HELPER WITH AM CARE. PATIENT TOLERATED WELL NO SIGNS OF DISTRESS NOTED. WILL CONTINUE TO MONITOR
[2019-11-27] MEDS ORDERED: LEVOTHYROXINE 0.1 MG TAB ONE ×2 (06:47→08:08)
[2019-11-27] MEDS ORDERED: LEVOTHYROXINE 0.025 MG TAB ONE ×2 (06:47→08:08)
[2019-11-27] MEDS: LEVOTHYROXINE 0.1 MG, LEVOTHYROXINE 0.025 MG PO SCH ×4 (06:50→08:13)
--- NOTE | 2019-11-27 07:05 | NUR ---
ATTEMPTED TO ADMINISTER 0730 MED FOR PATIENT BUT HE REFUSED AT THIS TIME. I ENDORSED MEDICATION TO AM NURSE TO ATTEMPT TO RE-ADMINISTER WHEN HE IS MORE AWAKE
--- NOTE | 2019-11-27 07:33 | NUR ---
ENDORSED PATIENT TO DAYSHIFT NURSE AT BEDSIDE FOR CONTINUITY OF CARE. PATIENT IN STABLE CONDITION.
--- NOTE | 2019-11-27 07:34 | NUR ---
RECEIVED REPORT ON PATIENT FROM PIANO INSTRUCTOR NURSE. PT RESTING COMFORTABLY IN BED, ON ROOM AIR, NO S/S RESPIRATORY DISTRESS OR PAIN AT THIS TIME. DROPLET PRECAUTIONS FOLLOWED D/T COVID, FALL PRECAUTIONS FOLLOWED. ALL NEEDS MET, CALL LIGHT WITHIN REACH, WILL CONTINUE TO MONITOR.
[2019-11-27 08:00] VITALS: BP 113/68
[2019-11-27] MEDS: QUEtiapine FUMARATE 100 MG TAB PO SCH (08:07)
[2019-11-27] MEDS: MONTELUKAST SODIUM 10 MG TAB PO SCH (08:07)
[2019-11-27] MEDS: ENOXAPARIN 40 MG/0.4 ML SYR SUBQ SCH (08:07)
[2019-11-27] MEDS: FERROUS SULFATE 325 MG TABEC PO SCH (08:07)
[2019-11-27] MEDS: FOLIC ACID 1 MG TAB PO SCH (08:08)
[2019-11-27] MEDS: CHOLECALCIFEROL 1,000 IU TAB PO SCH (08:12)
--- NOTE | 2019-11-27 08:14 | NUR ---
GIVEN MORNING MEDICATIONS PO. EXPLAINED MEDICATIONS. PATIENT TOLERATED WELL. BED IN LOW POSITION. CALL LIGHT IS WITHIN REACH. WILL CONTINUE TO MONITOR.
--- NOTE | 2019-11-27 10:18 | NUR ---
ACOUSTICAL INSTALLER AT BEDSIDE CLEANING AND READYING PATIENT FOR TRANSFER BACK TO [facility].
--- NOTE | 2019-11-27 10:32 | NUR ---
PHYSICAL THERAPIST AT BEDSIDE
--- NOTE | 2019-11-27 10:44 | NUR ---
GIVEN REPORT TO DANDY NYE AT [facility]. NO FURTHER QUESTIONS ASKED.
--- NOTE | 2019-11-27 11:15 | NUR ---
CALLED [facility] THROUGH [employer] TO FOLLOW UP LUNCHROOM WORKER. PERSONNEL STATED SHE JUST ACTIVATED THE LUNCHROOM WORKER TIME.
[2019-11-27 12:00] VITALS: BP 110/69
--- NOTE | 2019-11-27 12:21 | NUR ---
PATIENT IS EATING LUNCH AT THIS TIME. NO SIGNS OF DISTRESS NOTED. BED IN LOW POSITION. CALL LIGHT IS WITHIN REACH. AWAITING FOR TRANSPORT.
--- NOTE | 2019-11-27 13:10 | NUR ---
[facility] WILL F/U WITH THE TRANSPORT AGAIN.
--- NOTE | 2019-11-27 13:15 | NUR ---
UP TO DATE WITH VACCINATIONS.
--- NOTE | 2019-11-27 14:13 | NUR ---
PATIENT HAS APPOINTMENT WITH DR. BURRELL ON December AD 1014. APPOINTMENT SLIP IS IN THE DISCHARGE PACKET.
--- NOTE | 2019-11-27 14:19 | NUR ---
PT CLEANED AND CHANGED, NO S/S RESPIRATORY DISTRESS AT THIS TIME. LEFT LEAD CAME OFF, WAS PLACED BACK ON. TELEMETRY RHTYHM VISUALIZED. ALL NEEDS MET, CALL LIGHT WITHIN REACH, WILL CONTINUE TO MONITOR.
--- NOTE | 2019-11-27 14:30 | NUR ---
DISCHARGED PATIENT VIA GURNEY WITH TRANSPORT PERSONNEL. PATIENT IS WEARING SURGICAL MASK. IS IN STABLE CONDITION.
--- NOTE | 2019-11-27 14:38 | NUR ---
TRANSPORT IEHP AT BEDSIDE. TELE MONITOR LEFT AT BEDSIDE TABLE. PATIENT
[2019-12-22] MEDS ORDERED: CYANOCOBALAMIN 1,000 MCG TAB PO SCH (09:00)
== END 2019-11-27 14:43 | DRG 137 ==
LOC: MED 14:51 → EEVIPCON 14:51 → MMU 16:45
PROVIDERS: ADMIT Internal Medicine Pulmonary Disease; ATTEND Internal Medicine Pulmonary Disease
DX: U07.1 COVID-19 (principal); E03.9 Hypothyroidism, unspecified; E78.00 Pure hypercholesterolemia, unspecified; E78.5 Hyperlipidemia, unspecified; H91.93 Unspecified hearing loss, bilateral; J45.909 Unspecified asthma, uncomplicated; Z79.899 Other long term (current) drug therapy
CPT/HCPCS: 36415; 71045; 80053; 81001; 83605; 84484; 85025; 87040; 87081; 87086; 87804; 97112; 97116; 97161-GP; 99285; J0360; J1650; Q0092; U0003-CS